=== PATIENT | female | born 1975 | race Caucasian/White ===

== ENCOUNTER 2021-04-28 16:19 | Outpatient (REF) | payer BC, SELFPAY ==
[2021-04-28 17:10] LABS: Blood Urea Nitrogen 16 mg/dL (9-16); Estimated Glomerular Filt Rate 44
== END 2021-04-28 16:20 | disposition home or self-care (01) ==
LOC: HO.LAB 16:19
PROVIDERS: PCP Internal Medicine; Visit Provider Psychiatry & Neurology Neurology
DX: G40.209 Localization-related (focal) (partial) symptomatic epilepsy and epileptic syndromes with complex partial seizures, not intractable, without status epilepticus (principal)
CPT/HCPCS: 36415; 82565; 84520

== ENCOUNTER 2021-05-10 07:52 | Outpatient (REF) | payer BC, SELFPAY ==
--- NOTE | ~2021-05-10 | MR_ITS ---
EXAMINATION: MR BRAIN WITHOUT AND WITH CONTRAST CLINICAL INFORMATION: 45-year-old with complex partial seizure disorder. COMPARISON: None TECHNIQUE: Multiplanar, multisequence MRI of the brain was obtained before and after the intravenous administration of 10 mL Gadavist. FINDINGS: BRAIN VOLUME: Unremarkable with no disproportionate global or regional brain parenchymal volume loss based on qualitative evaluation. STRUCTURAL: Minimal cerebellar tonsillar ectopia at the foramen magnum, which is an anatomic variant. Otherwise unremarkable. BRAIN AND MENINGES: DWI imaging demonstrates no restricted diffusion to suggest acute or subacute cerebral ischemia. The brain is normal in morphology and signal intensity. No evidence for hemorrhage, hemosiderin staining or abnormal mineral deposition. No intracranial mass lesions, abnormal enhancement, space-occupying process or mass effect. VENTRICLES AND SUBARACHNOID SPACES: Within normal limits in appearance. No hydrocephalus. ORBITAL STRUCTURES: The visualized orbital structures are grossly unremarkable within the limitations of the study. VASCULAR: Signal voids are noted in the visualized major intracranial vessels. SINUSES AND OSSEOUS STRUCTURES: Unremarkable. MR/MR head/brain wo/w con IMPRESSION: Normal MRI of the brain without and with contrast.
== END 2021-05-10 07:53 | disposition home or self-care (01) ==
LOC: HO.MRI 07:52
PROVIDERS: Visit Provider Psychiatry & Neurology Neurology
DX: G40.209 Localization-related (focal) (partial) symptomatic epilepsy and epileptic syndromes with complex partial seizures, not intractable, without status epilepticus (principal)
CPT/HCPCS: 70553; A9585